=== PATIENT | male | born 1990 | race Caucasian/White ===

== ENCOUNTER 2021-04-07 10:43 | Emergency (ER) | payer SELFPAY ==
[2021-04-07] MEDS ORDERED: Ventolin HFA Inhaler 60 PUFF INHALER ONE (13:47)
[2021-04-07] MEDS ORDERED: predniSONE 20 MG TAB ONE (13:47)
[2021-04-07 20:30] LABS: SARS-CoV-2 PCR by NAA Not Detected (NotDetected)
== END 2021-04-07 14:15 | disposition home or self-care (01) ==
LOC: CSHERS 10:43
DX: J20.9 Acute bronchitis, unspecified (principal); B34.9 Viral infection, unspecified; F17.210 Nicotine dependence, cigarettes, uncomplicated; Z20.822 Contact with and (suspected) exposure to COVID-19
CPT/HCPCS: 71045; 93005; J7512; U0003; U0005